=== PATIENT | female | born 1960 | race Caucasian/White ===

== ENCOUNTER → 2023-05-29 | Outpatient (CLI) | payer BC ==
--- NOTE | 2023-05-29 14:33 | Diagnostic Imaging Report ---
PROCEDURE: MRI lumbar spine. TECHNIQUE: Multiplanar, multisequence MRI of the lumbar spine was performed without contrast. INDICATION: Back pain and right-sided sciatica with leg numbness. COMPARISON: None available. FINDINGS: Dextroscoliosis has apex at L2-L3. There is 10 mm of left lateral translation of L2 on L3. No anterolisthesis within the lumbar spine. No fracture concerning marrow replacing process. There are a few areas of mild Modic type I endplate changes at L5-S1 and L2-L3. Distal thoracic cord is normal in appearance. No abnormal enlargement or clumping of the distal nerve roots. L1-L2: Minimal disc bulge. No spinal canal or neuroforaminal stenosis. L2-L3: Disc bulge is asymmetric to the left causing moderate neuroforaminal stenosis but no abutment of the exiting nerve root. There is mild to moderate neuroforaminal narrowing on the right as well. Facet osteoporosis present. Overall there is mild spinal canal stenosis but no mass effect on the distal nerve roots. L3-L4: Disc bulge with facet osteoarthritis and ligament hypertrophy. This causes mild spinal canal stenosis but no mass effect on the nerve roots. Mild bilateral neuroforaminal stenosis without mass effect. L4-L5: Facet osteoporosis arthritis and disc bulge causes mild spinal canal stenosis. Moderate to severe left neuroforaminal stenosis causes abutment of the exiting left L4 nerve root. Mild right neuroforaminal stenosis without mass effect. No intrathecal nerve root impingement. L5-S1: Disc bulge is asymmetric to the right causing severe neuroforaminal stenosis and potential compression of the exiting L5 nerve. Moderate left neuroforaminal stenosis. No spinal canal stenosis. IMPRESSION: 1. No fracture. 2. Multilevel degenerative changes are present, there is potential for impingement of the nerve roots at L4-L5 and L5-S1. Dictated by: Dictated on workstation # [id number]
== END ==
LOC: RAD 09:14
PROVIDERS: ATTEND Family Medicine
DX: M47.816 Spondylosis without myelopathy or radiculopathy, lumbar region (principal); M47.817 Spondylosis without myelopathy or radiculopathy, lumbosacral region; M48.062 Spinal stenosis, lumbar region with neurogenic claudication
CPT/HCPCS: 72148